=== PATIENT | male | born 1965 | race Caucasian/White ===

== ENCOUNTER 2017-12-24 13:29 | Emergency (ER) | payer OTHER ==
--- NOTE | 2017-12-24 14:11 | ED ---
Neurological HPI - HPI Summary HPI Summary: Patient is a 52 y/o M w/ c/o right facial paralysis, inability to move eyelid/ eyebrow and KOEHLER onsetting this morning. He also reports difficulty smiling the past few days, states that his left lip feels, "thicker" Facial numbness, tingling is denied. No fever reported. Patient reports no acute changes in vision, speech, ambulation. PMHx of bronchial asthma is reported, he notes chronic seasonal rash to right arm. PMHx of type 2 diabetes, patient is not on medication for this and does not have a glucometer. FMHx of CVA is endorsed. Fever, chills, erythema at eyes, sore throat, chest pain, SOB, cough, abdominal pain, N/V, dysuria, hematuria, myalgia, edema, rash and dizziness are not reported. On triage, pain is rated 0/10, nothing is noted to aggravate/ alleviate Sx. Home medications and allergies are reviewed. - History of Current Complaint Chief Complaint: EDNeurologicalDeficit Stated Complaint: NUMBNESS IN FACE Time Seen by Provider: 12/24/17 13:34 Hx Obtained From: Patient Onset/Duration: Started hours ago - right facial paralysis, inability to move eyelid/eyebrow and KOEHLER onsetting this morning., Started days ago - difficulty smiling, Still Present - right facial paralysis, inability to move eyelid/ eyebrow Timing: Constant Current Severity: None - pain denied on triage Neurological Deficit Location: Facial - right Pain Intensity: 0 Pain Scale Used: 0-10 Numeric - 0/10 Character: Other: - right facial paralysis, inability to move eyelid/eyebrow, difficulty smiling; states that his left lip feels, "thicker" Facial numbness, tingling is denied. No fever reported. Patient reports no acute changes in vision, speech, ambulation Aggravating: Nothing Alleviating: Nothing Associated Signs and Symptoms: Positive: Headache. Negative: Visual Changes, Impaired Speech, Numbness, Nausea/Vomiting, Fever, Chest Pain, Shortness of Breath - Allergy/Home Medications Allergies/Adverse Reactions: Allergies Allergy/AdvReac Type Severity Reaction Status Date / Time "CILLINS" Allergy RASH FOR Uncoded 12/24/17 13:36 1.5 YEARS PMH/Surg Hx/FS Hx/Imm Hx Endocrine/Hematology History: Reports: Hx Diabetes - TYPE II- NO MEDICATION FOR Cardiovascular History: Reports: Hx Valvular Heart Disease - MITRAL VALVE PROLAPSE Respiratory History: Reports: Hx Asthma, Hx Sleep Apnea - POSSIBLY NOT DIAGNOSED GI History: Reports: Hx Hiatal Hernia, Hx Ulcer - BLEEDING ULCERS 2004 Sensory History: Denies: Hx Contacts or Glasses, Hx Hearing Aid Opthamlomology History: Denies: Hx Contacts or Glasses Neurological History: Reports: Hx Headaches - TREATS WITH TYLENOL AND COFFEE Infectious Disease History: No Infectious Disease History: Denies: Traveled Outside the [place] in Last 30 Days - Family History Known Family History: Positive: Other - FMHX OF CVA - Social History Alcohol Use: None Substance Use Type: Reports: Marijuana Substance Use Comment - Amount & Last Used: rarely Smoking Status (MU): Never Smoked Tobacco Review of Systems Negative: Fever, Chills Negative: Blurred Vision - ACUTE , Erythema Negative: Sore Throat Negative: Chest Pain Negative: Shortness Of Breath, Cough Negative: Abdominal Pain, Vomiting, Nausea Negative: dysuria, hematuria Negative: Myalgia, Edema Positive: Rash - CHRONIC Neurological: Other - right facial paralysis, inability to move eyelid/eyebrow; difficulty smiling the past few days, states that his left lip feels, "thicker" ; Patient reports no acute changes in vision, speech, ambulation Positive: Headache. Negative: Numbness - NO TINGLING , Slurred Speech All Other Systems Reviewed And Are Negative: Yes Physical Exam - Summary Physical Exam Summary: Constitutional: Well-developed, Well-nourished, Alert. (-) Distressed Skin: Warm, Dry HENT: Normocephalic; Atraumatic Eyes: Conjunctiva normal Neck: Musculoskeletal ROM normal neck. (-) JVD, (-) Stridor, (-) Tracheal deviation Cardio: Rhythm regular, rate normal, Heart sounds normal; Intact distal pulses; The pedal pulses are 2+ and symmetric. Radial pulses are 2+ and symmetric. (-) Murmur Pulmonary/Chest wall: Effort normal. (-) Respiratory distress, (-) Wheezes, (-) Rales Abd: Soft. (-) Tenderness, (-) Distension, (-) Guarding, (-) Rebound Musculoskeletal: (-) Edema Lymph: (-) Cervical adenopathy Neuro: Alert, Oriented x3, full right side facial paralysis including eyelid and eyebrow, no sign of herpes zoster oticus Psych: Mood and affect Normal Triage Information Reviewed: Yes Vital Signs On Initial Exam: Initial Vitals Temp Pulse Resp BP Pulse Ox 98.1 F 101 18 197/101 98 12/24/17 13:31 12/24/17 13:31 12/24/17 13:31 12/24/17 13:31 12/24/17 13:31 Vital Signs Reviewed: Yes Diagnostics - Vital Signs Vital Signs Temp Pulse Resp BP Pulse Ox 12/24/17 13:31 98.1 F 101 18 197/101 98 - Laboratory Result Diagrams: 12/24/17 14:22 12/24/17 14:22 Lab Statement: Any lab studies that have been ordered have been reviewed, and results considered in the medical decision making process. Re-Evaluation - Re-Evaluation First Eval Re-Evaluation Time: 14:00 Comment: Results of labs discussed with patient. As patient is not on medication for diabetes and does not have glucometer, he was advised to follow up with [facility] to get PCP and discuss treatment of his diabetes. He was also advised to get a glucometer. Patient's Sx were discussed, he is agreeable with discharge. Dx of lang palsy. Course/Dx - Course Course Of Treatment: Patient is a 52 y/o M w/ c/o right facial paralysis, inability to move eyelid/eyebrow and KOEHLER onsetting this morning. He also reports difficulty smiling the past few days, states that his left lip feels, "thicker" Facial numbness, tingling is denied. No fever reported. Patient reports no acute changes in vision, speech, ambulation. PMHx of bronchial asthma is reported, he notes chronic seasonal rash to right arm. PMHx of type 2 diabetes, patient is not on medication for this and does not have a glucometer. FMHx of CVA is endorsed. Physical exam, Neuro: Alert, Oriented x3, full right side facial paralysis including eyelid and eyebrow, no sign of herpes zoster oticus. During ED course, patient received Tylenol 975 mg PO ONCE, deltasone 60 mg PO ONCE, Valtrex 1 gm PO ONCE. Labs showed glucose 307, BUN/creatinine ratio 20.3 , RBC 5.66. Results of labs discussed with patient. As patient is not on medication for diabetes and does not have glucometer, he was advised to follow up with [facility] to get PCP and discuss treatment of his diabetes. He was also advised to get a glucometer. Patient's Sx were discussed, he is agreeable with discharge. Dx of lang's palsy. - Diagnoses Provider Diagnoses: Lang's palsy Discharge - Sign-Out/Discharge Documenting (check all that apply): Patient Departure - discharge - Discharge Plan Condition: Stable Disposition: HOME Prescriptions: metFORMIN* [Glucophage 500 MG TAB *] 500 mg PO BID #60 tab predniSONE [Prednisone 20 MG TAB] 20 mg PO DAILY 14 Days #19 tablet ValACYclovir (*) [Valtrex 1 GM(*)] 1 gm PO TID #21 tab Patient Education Materials: Lang Palsy (ED), How to Check your Blood Sugar (ED ) Referrals: [facility] [Outside] - 2 Days Additional Instructions: RETURN TO EMERGENCY DEPARTMENT FOR ANY NEW OR WORSENING SYMPTOMS. FOLLOW UP WITH PRIMARY CARE PHYSICIAN IN 1-2 DAYS - Attestation Statements Document Initiated by Scribe: Yes Documenting Scribe: FERMIN HUSSEIN Provider For Whom Scribe is Documenting (Include Credential): LIZZIE SOTO MD Scribe Attestation: FERMIN Clark , scribed for LIZZIE SOTO MD on 12/24/17 at 1835.
[2017-12-24] MEDS ORDERED: ValACYclovir (*) 1 GM TAB PO ONE (14:17)
[2017-12-24] MEDS ORDERED: predniSONE TAB* 20 MG PO ONE (14:17)
[2017-12-24] MEDS ORDERED: Acetaminophen TAB* 325 MG PO ONE (14:25)
[2017-12-24 14:39] LABS: Hematocrit 48 % (42-52); Mean Corpuscular HGB Conc 33 g/dl (31-36); Mean Corpuscular Hemoglobin 28 pg (27-31); Mean Corpuscular Volume 85 fL (80-94); Mean Platelet Volume 9.2 fL (7.4-10.4); Platelet Count 178 10^3/ul (150-450); Red Blood Count 5.66 10^6/ul (4.00-5.40); Red Cell Distribution Width 14 % (10.5-15); White Blood Count 5.7 10^3/ul (3.5-10.8)
[2017-12-24 14:55] LABS: EGFR Non-African American 110.2 (>60)
[2017-12-24 15:24] VITALS: BP 176/114
== END 2017-12-24 15:15 | disposition home or self-care (01) ==
LOC: ED 13:29
DX: G51.0 Bell's palsy (principal); R51 Headache; E11.9 Type 2 diabetes mellitus without complications; Z88.0 Allergy status to penicillin
CPT/HCPCS: 36415; 80053; 85027; 86618; 99282; A9270-GY; J7512